=== PATIENT | female | born 1950 | race Caucasian/White ===

== ENCOUNTER 2019-02-13 16:39 | Observation (INO) ==
[2019-02-13 17:39] LABS: Basophils % 0.1 %; Eosinophils # 0.1 K/mcL (0.0-0.6); Eosinophils % 1.1 %; Hematocrit 37.6 % (35.3-44.9); Hemoglobin 11.5 g/dL (11.5-15.4); Immature Granulocytes % 0.1 % (0-4); Lymphocytes # 1.3 K/mcL (0.6-4.6); Lymphocytes % 17.5 %; Mean Corpuscular HGB Conc 30.6 g/dL (31.6-35.5); Mean Corpuscular Hemoglobin 31.2 pg (28.0-33.3); Mean Corpuscular Volume 101.9 fL (83.0-100.0); Mean Platelet Volume 9.6 fL (9.4-12.4); Monocytes # 0.8 K/mcL (0.0-1.3); Monocytes % 10.5 %; Neutrophils # 5.4 K/mcL (1.6-8.9); Platelet Count 228 K/mcL (140-400); Red Blood Count 3.69 M/mcL (3.82-4.97); Red Cell Distribution Width 13.7 % (11.5-14.5); Segmented Neutrophils % 70.7 %; White Blood Count 7.6 K/mcL (4.3-11.1)
[2019-02-13 17:43] LABS: Prothrombin Time 11.1 Seconds (9.4-12.1)
[2019-02-13 17:46] LABS: Activated Partial Thrombo Time 31.4 Seconds (26.0-36.0)
[2019-02-13 17:57] LABS: BUN/Creatinine Ratio 19 (6-26); Blood Urea Nitrogen 20 mg/dL (8-23); Calcium 8.9 mg/dL (8.6-10.3); Carbon Dioxide 24 mEq/L (23-29); Chloride 106 mEq/L (98-107); Glucose 143 mg/dL (70-105); Osmolality,Calculated 297 (280-300); Potassium 3.7 mEq/L (3.5-5.1); Sodium 141 mEq/L (136-145); Troponin I < 0.03 ng/mL (< 0.04); eGFR For African Americans > 60 (> 60); eGFR For Non-African Americans 52 (> 60)
[2019-02-13 18:11] LABS: Thyroid Stimulating Hormone 3.214 mcIU/mL (0.340-5.600)
[2019-02-13 19:06] LABS: Magnesium 1.8 mg/dL (1.6-2.6)
[2019-02-13] MEDS ORDERED: *HR* Metoprolol 5 MG/5 ML VIAL IVP PRN (21:05)
[2019-02-13] MEDS ORDERED: Gabapentin 300 MG CAPSULE PO ONE (21:20)
[2019-02-13] MEDS: rOPINIRole 1 MG TABLET PO SCH (21:41)
[2019-02-13] MEDS ORDERED: *HR* Enoxaparin 80 MG/0.8 ML SYRINGE SQ ONE (21:45)
[2019-02-14] MEDS ORDERED: Gabapentin 300 MG CAPSULE PO SCH (09:00)
[2019-02-14] MEDS: Metoprolol XL (24 HR) Succ 25 MG TAB.ER.24H PO SCH (12:05)
[2019-02-14] MEDS ORDERED: *HR* Heparin 5,000 UNIT/ML VIAL SQ SCH (14:00)
[2019-02-14] MEDS: Gabapentin 400 MG CAPSULE PO SCH ×2 (16:33→20:52)
[2019-02-14] MEDS ORDERED: *HR* Rivaroxaban 10 MG TABLET PO SCH (17:00)
[2019-02-14] MEDS: rOPINIRole 1 MG TABLET PO SCH (20:51)
[2019-02-15 04:48] LABS: Basophils % 0.2 %; Eosinophils % 0.8 %; Hematocrit 30.1 % (35.3-44.9); Immature Granulocytes % 0.2 % (0-4); Lymphocytes # 1.2 K/mcL (0.6-4.6); Lymphocytes % 23.6 %; Mean Corpuscular HGB Conc 32.6 g/dL (31.6-35.5); Mean Corpuscular Volume 98.4 fL (83.0-100.0); Mean Platelet Volume 9.8 fL (9.4-12.4); Monocytes # 0.7 K/mcL (0.0-1.3); Monocytes % 14.3 %; Platelet Count 198 K/mcL (140-400); Red Blood Count 3.06 M/mcL (3.82-4.97); Red Cell Distribution Width 14.1 % (11.5-14.5); Segmented Neutrophils % 60.9 %; White Blood Count 4.9 K/mcL (4.3-11.1)
[2019-02-15 04:55] LABS: Hemoglobin 9.8 g/dL (11.5-15.4)
[2019-02-15 05:09] LABS: BUN/Creatinine Ratio 25 (6-26); Blood Urea Nitrogen 25 mg/dL (8-23); Calcium 8.5 mg/dL (8.6-10.3); Carbon Dioxide 25 mEq/L (23-29); Chloride 107 mEq/L (98-107); Chol/HDL Ratio 2.1 (0-4.9); Cholesterol 159 mg/dL (< 200); Glucose 91 mg/dL (70-105); HDL Cholesterol 75 mg/dL (40-59); LDL Cholesterol,Calculated 73 mg/dL (0-99); Magnesium 1.9 mg/dL (1.6-2.6); Osmolality,Calculated 294 (280-300); Phosphorous 4.2 mg/dL (2.7-4.5); Potassium 4.1 mEq/L (3.5-5.1); Sodium 140 mEq/L (136-145); Triglycerides 54 mg/dL (< 150); eGFR For African Americans > 60 (> 60); eGFR For Non-African Americans 56 (> 60)
[2019-02-15 07:07] VITALS: BP 121/65
[2019-02-15] MEDS: Gabapentin 400 MG CAPSULE PO SCH (09:00)
[2019-02-15] MEDS: Metoprolol XL (24 HR) Succ 25 MG TAB.ER.24H PO SCH (09:01)
[2019-02-15 10:00] LABS: Estimated Average Glucose 105 mg/dl
== END 2019-02-15 11:35 | disposition home or self-care (01) ==
LOC: EMEROOARM 16:39 → 2NENU 16:39 → SUATTDRO 19:01 → 2NENU 20:36
PROVIDERS: ADMIT Student in an Organized Health Care Education/Training Program; ATTEND Internal Medicine